=== PATIENT | male | born 1975 | race Two or more races ===

== ENCOUNTER 2024-06-19 21:50 | Emergency (ER) | payer MEDICAID ==
[~2024-06-19] VITALS: Ht 177.8 cm; Wt 95.7 kg
[2024-06-19] MEDS: TETRACAINE HCL 0.5% OPTH(EYE) SOLN 4ML EACHEYE ONE (22:11)
--- NOTE | 2024-06-19 22:17 | ED.PDOC ---
Eye-HPI HPI Comments 48y F who presents to the ED for chief complaint of foreign body. Pt states on Wednesday, he was painting in his house and states he felt something touch his eye and states he has been having redness and irritation from L eye. Pt states he was not wearing eyewear at time of incident. Pt in the ED, has noted foreign body by the 9'o clock position in the L eye with noted redness. pt otherwise denies changes in vision or gait disturbances. Pt otherwise denies any other symptoms at this time. Chief Complaint: Eye Problem Time Seen by MD: 22:09 Reviewed Notes: Nurses Notes Allergies: Coded Allergies: NO KNOWN ALLERGIES (Unverified , 06/19/24) Information Source: Patient Mode of Arrival: Ambulatory Brought in by: self Past Medical History PAST MEDICAL HISTORY: Denies Surgical History: Denies all surgeries Family History Family History: Unknown Social History Smoker: Non-Smoker Alcohol: Denies ETOH Use Drugs: Denies Drug Use Lives In: Home Constitutional: denies: chills, diaphoresis, fatigue, fever, malaise, sweats, weakness, others EENTM: reports: eye redness; denies: blurred vision, double vision, ear bleeding, ear discharge, ear drainage, ear pain, ear ringing, eye pain, hearing loss, mouth pain, mouth swelling, nasal discharge, nose bleeding, nose congestion, nose pain, photophobia, tearing, throat pain, throat swelling, voice changes, others Respiratory: denies: cough, hemoptysis, orthopnea, SOB at rest, shortness of breath, SOB with excertion, stridor, wheezing, others Cardiovascular: denies: chest pain, dizzy spells, diaphoresis, Dyspnea on exertion, edema, irregular heart beat, left arm pain, lightheadedness, palpitations, PND, syncope, others Gastrointestinal: denies: abdomen distended, abdominal pain, blood streaked bowels, constipated, diarrhea, dysphagia, difficulty swallowing, hematemesis, melena, nausea, poor appetite, poor fluid intake, rectal bleeding, rectal pain, vomiting, others Genitourinary: denies: burning, dysuria, flank pain, frequency, hematuria, i ncontinence, penile discharge, penile sore, pain, testicle pain, testicle swelling, urgency, others Neurological: denies: dizziness, fainting, headache, left sided numbness, left sided weakness, numbness, paresthesia, pre-existing deficit, right sided numbness, right sided weakness, seizure, speech problems, tingling, tremors, weakness, others Musculoskeletal: denies: back pain, gout, joint pain, joint swelling, muscle pain, muscle stiffness, neck pain, others Integumetry: denies: bruises, change in color, change in hair/nails, dryness, laceration, lesions, lumps, rash, wounds, others Allergic/Immunocompromised: denies: Difficulty Healing, Frequent Infections, Hives, Itching, others Hematologic/Lymphatic: denies: anemia, blood clots, easy bleeding, easy bruising, swollen glands, others Endocrine: denies: excessive hunger, excessive sweating, excessive thirst, excessive urination, flushing, intolerance to cold, intolerance to heat, unexplained weight gain, unexplained weight loss, others Psychiatric: denies: anxiety, bipolar disorder, depression, hopeless, panic disorder, schizophrenia, sleepless, suicidal, others All Other Systems: Reviewed and Negative Physical Exam General Appearance: No Apparent Distress, Normal HEENT: Other (foreign body in L eye at 9 o clock position) Neck: Full Range of Motion, Non-Tender, Normal, Normal Inspection Respiratory: Chest Non-Tender, Lungs Clear, No Accessory Muscle Use, No Respiratory Distress, Normal Breath Sounds Cardiovascular: No Edema, No JVD, No Murmur, No Gallop, Normal Peripheral Pulses, Regular Rate/Rhythm Breast Exam: Deferred Gastrointestinal: No Organomegaly, Non Tender, No Pulsatile Mass, Normal Bowel Sounds, Soft Genitalia: Deferred Pelvic: Deferred Rectal: Deferred Extremities: No calf tenderness, Normal capillary refill, Normal inspection, Normal range of motion, Non-tender, No pedal edema Musculoskeletal : Apperance: Normal Neurologic: Alert, negative cutter II-XII nml as Tested, No Motor Deficits, Normal Affect, Normal Mood, No Sensory Deficits Cerebellar Function: Normal Reflexes: Normal Skin: Dry, Normal Color, Warm Lymphatic: No Adenopathy Was a procedure done? Was a procedure done?: No Foreign Body Removal Foreign body in: Eye Anesthetic: Other ( tetracaine) Procedure: Removed Informed consent obtained: Yes Risks/benefits/alt described: Yes EENT DIFF Eye: Conjunctivitis, Allergic, Corneal Abrasion, Foreign Body-Conjunctiva, Foreign Body-Corneal, Foreign Body-Intraocular, Subconjunctival Hemorrhag X-Ray, Labs, Meds, VS Vital Signs Date Time Temp Pulse Resp B/P (MAP) Pulse Ox O2 Delivery O2 Flow Rate FiO2 06/19/24 22:05 98.0 71 18 155/79 (104) 98 X-Ray, Labs, Meds, VS Comment Imaging: X-rays and CT scans were reviewed and interpreted by this provider, imaging shows no fractures and no pathological disease. Pending radiology review. Laboratory: Labs reviewed and interpreted by this provider. No significant abnormalities noted. Patient has prior medical visits reviewed. Med reconciliation performed Vital signs reviewed Time of 1ST Reevaluation: 22:40 Reevaluation 1ST: Unchanged Patient Education/Counseling: Diagnosis, Treatment, Need For Follow Up (Follow up in the next 24-48 hours if symptoms worsen.) Family Education/Counseling: No Family Present Departure 1 Departure Time of Disposition: 22:18 Impression: Primary Impression: Foreign body of left eye Qualified Codes: T15.92XA - Foreign body on external eye, part unspecified, left eye, initial encounter Disposition: HOME / SELF CARE / HOMELESS Condition: Fair e-Prescriptions [id number] (Maxitrol) 0.1 % Oin 0.1 % OP TID for 5 Days, #1 OIN Prov: BJ IRVING 06/19/24 Discharged With: Self Critical Care Note Critical Care Time?: No Stability Stability form required: No Heart Score Heart Score: Heart Score Response (Comments) Value History N/A 0 EKG N/A 0 Age N/A 0 Risk Factors N/A 0 Troponin N/A 0 Total 0 I personally scribed for BJ IRVING ([email or web address]) on 06/19/24 at 22:17. Electronically submitted by Quynh TUCKER). BJ IRVING Jun 19, 2024 22:17
[2024-06-19] MEDS ORDERED: NEOM0.1O7 OP (22:19)
[2024-06-19 22:50] VITALS: BP 142/84; PULSE 70; RESP 18; TEMP 98; O2SAT 98
== END 2024-06-19 23:20 | disposition home or self-care (01) ==
LOC: ER 21:50
DX: T15.92XA Foreign body on external eye, part unspecified, left eye, initial encounter (principal); W44.8XXA Other foreign body entering into or through a natural orifice, initial encounter; Y93.89 Activity, other specified; Y92.89 Other specified places as the place of occurrence of the external cause; Y99.8 Other external cause status